=== PATIENT | female | born 1985 | race Caucasian/White ===

== ENCOUNTER 2018-04-07 17:23 | Emergency (ER) | payer OTHER ==
[~2018-04-07] VITALS: Ht 172.7 cm; Wt 121.6 kg
[~2018-04-07 17:23] MED LIST: SUBOXONE 4 MG-1 EACH SL
== END 2018-04-07 17:50 | disposition home or self-care (01) ==
LOC: ED 17:23
DX: S80.862A Insect bite (nonvenomous), left lower leg, initial encounter (principal); W57.XXXA Bitten or stung by nonvenomous insect and other nonvenomous arthropods, initial encounter